=== PATIENT | female | born 1970 | race Caucasian/White ===

== ENCOUNTER 2017-01-17 12:04 | Emergency (ER) | payer MEDICAID ==
[~2017-01-17] VITALS: Ht 170.2 cm; Wt 180.0 kg
[2017-01-17 12:05] VITALS: BP 177/106; PULSE 97; RESP 20; TEMP 97.6; O2SAT 99
--- NOTE | 2017-01-17 12:09 | PD ---
Physical Exam Date Seen by Provider: Jan 17, 2017 Time Seen by Provider: 12:08 Narrative 46 yo female here for UTI. Polyuria, dysuria, bladder pain. No hematuria or back pain. Going on since yesterday. History of this in the past. Vitals are stable in triage. Awaiting bed placement. Data Data Last Documented VS Vital Signs Date Time Temp Pulse Resp B/P Pulse Ox O2 Delivery O2 Flow Rate FiO2 01/17/17 12:05 97.6 97 20 177/106 99 Room Air [facility] Medical Record Reviewed: Yes Supervised Visit with BLANCHE: Gibson Bonds Jan 17, 2017 12:09
[2017-01-17] MEDS ORDERED: MACR100C2 PO (12:26)
--- NOTE | 2017-01-17 12:27 | PD ---
HPI Chief Complaint: Complaint Time Seen by Provider: 12:14 Travel History International Travel<30 days: No Contact w/Intl Traveler<30days: No Traveled to known affect area: No History of Present Illness HPI So 46 year-old woman presents emergent from complaining of dysuria, polyuria, and some lower abdominal discomfort. States she feels like she has a urinary tract infection. Symptoms been ongoing for the past 2 days or so. She otherwise has been feeling generally well and healthy prior to this. She is a history of hypertension, hypothyroidism, lupus, IBS, and arthritis. She gets diarrhea often because of her IBS. She said the diarrhea recently. She also states that she had bad back pain a couple weeks ago and was seen in an emergency department and diagnosed with a back strain/sprain. No other complaints. History Past Medical History Narrative Medical Hypertension Hypothyroidism Lupus Arthritis IBS, with diarrhea Lower extremity swelling, on Lasix Back pain Social History Tobacco Use: No Allergies-Medications (Allergen,Severity, Reaction): Coded Allergies: Penicillin (Verified Allergy, Unknown, 01/17/17) Reported Meds & Prescriptions Reported Meds & Active Scripts Active Macrobid (Nitrofurantoin Monohydrate Macrocrystals) 100 Mg Capsule 100 Mg PO BID Review of Systems Except as stated in HPI: all other systems reviewed are Neg Physical Exam Narrative GENERAL: 46 year-old woman, obese, no acute distress. SKIN: Focused skin assessment warm/dry. CARDIOVASCULAR: Regular rate and rhythm. No murmur appreciated. RESPIRATORY: No accessory muscle use. Clear to auscultation. Breath sounds equal bilaterally. GASTROINTESTINAL: Minimal right sided CVA tenderness percussion. Minimal lower abdominal tenderness. No rebound or guarding. MUSCULOSKELETAL: No obvious deformities. No clubbing. No cyanosis. No edema. NEUROLOGICAL: Awake and alert. No obvious cranial nerve deficits. Motor grossly within normal limits. Normal speech. PSYCHIATRIC: Appropriate mood and affect; insight and judgment normal. Data Data Last Documented VS Vital Signs Date Time Temp Pulse Resp B/P Pulse Ox O2 Delivery O2 Flow Rate FiO2 01/17/17 12:05 97.6 97 20 177/106 99 Room Air Orders Urinalysis - C+S If Indicated (01/17/17 12:14) Urine Culture (01/17/17 12:25) Labs Laboratory Tests Test 01/17/17 12:25 Urine Color YELLOW Urine Turbidity HAZY Urine pH 6.5 Urine Specific [place] 1.023 Urine Protein 30 mg/dL Urine Glucose (UA) NEG mg/dL Urine Ketones NEG mg/dL Urine Occult Blood SMALL Urine Nitrite NEG Urine Bilirubin NEG Urine Urobilinogen 2.0 MG/DL Urine Leukocyte Esterase LARGE Urine RBC 17 /hpf Urine WBC 85 /hpf Urine Squamous Epithelial 8 /hpf Cells Urine Transitional Epithelial 1 /hpf Cells Urine Bacteria MOD /hpf Urine Mucus FEW /lpf Microscopic Urinalysis Comment CULTURE INDICATED MDM Medical Decision Making Medical Screen Exam Complete: Yes Emergency Medical Condition: Yes Interpretation(s) UA: Pyuria Differential Diagnosis UTI, urethritis, cervicitis, renal lithiasis, other Narrative Course Medical decision making This a 46 old woman presents to the emergency department complaining of dysuria polyuria and some lower abdominal discomfort suggestive of a urinary tract infection. States she's had before this feels similar. She otherwise had been feeling generally well and healthy before this. She did have some back pain recently raising possibility of a kidney stone but I think this is less likely. We'll check UA, likely discharge for outpatient follow-up Diagnosis Primary Impression: UTI (urinary tract infection) Additional Instructions: Take antibiotics as prescribed. Follow-up with her primary doctor if you're not completely well in one week. Return to the emergency department for any new or worsening symptoms. Med/Other Pt SpecificInfo: Prescription(s) given Scripts Nitrofurantoin Monohydrate Macrocrystals (Macrobid)100 Mg [id number] Mg PO BID #14 CAP Ref 0 Prov:Pollo Butts MD 01/17/17 Disposition: 01 DISCHARGE HOME Condition: Stable Pollo Butts MD Jan 17, 2017 12:27
[2017-01-17 12:55] LABS: BACTERIA, URINE MOD /hpf; BLOOD, URINE SMALL (NEG); COMMENT (UR) CULTURE INDICATED; CULTURE IF INDICATED CULTURE INDICATED; GLUCOSE,URINE NEG (NEG); KETONE, URINE NEG (NEG); MUCUS URINE FEW /lpf (OCC); NITRITE,URINE NEG (NEG); PH, URINE 6.5 (5.0-8.5); SQUAMOUS EPITHELIAL CELL URINE 8 /hpf (0-5); TRANSITIONAL EPI CELLS, URINE 1 /hpf; URINE COLOR YELLOW (YELLW/STRAW)
[2017-01-17] MEDS ORDERED: PHEN0.4T PO (13:12)
[2017-01-17] MEDS ORDERED: PROM25TA10 PO (13:24)
[2017-01-17] MEDS ORDERED: ERGO1CAP30 PO (13:24)
[2017-01-17] MEDS ORDERED: BENA40TA PO (13:24)
[2017-01-17] MEDS ORDERED: FURO1TAB60 PO (13:24)
[2017-01-17] MEDS ORDERED: HYDR-3366 PO (13:24)
[2017-01-17] MEDS ORDERED: DICL75TA PO (13:24)
[2017-01-17] MEDS ORDERED: ORPH100T PO (13:24)
[2017-01-17] MEDS ORDERED: LEVO50TA4 PO (13:24)
[2017-01-17] MEDS ORDERED: CLON0.5T PO (13:24)
[2017-01-17] MEDS ORDERED: AMLO10TA2 PO (13:24)
[2017-01-17] MEDS ORDERED: IRONTAB5 PO (13:24)
[2017-01-17] MEDS ORDERED: IRON 65MG PO (13:25)
== END 2017-01-17 13:32 | disposition home or self-care (01) ==
LOC: NEPD 12:04
DX: N39.0 Urinary tract infection, site not specified (principal); I10 Essential (primary) hypertension; E03.9 Hypothyroidism, unspecified; M32.9 Systemic lupus erythematosus, unspecified; M13.80 Other specified arthritis, unspecified site; K58.9 Irritable bowel syndrome, unspecified; Z79.899 Other long term (current) drug therapy; Z88.0 Allergy status to penicillin
CPT/HCPCS: 81001; 87086; 99283